=== PATIENT | female | born 1980 | race Caucasian/White ===

== ENCOUNTER → 2021-02-23 09:08 | Outpatient (CLI) | payer MEDICAID, SELFPAY ==
[2021-02-23 11:28] LABS: HCG,Quantitative 30002 mIU/ml (0-5.42)
== END ==
PROVIDERS: Visit Provider Obstetrics & Gynecology
DX: Z34.90 Encounter for supervision of normal pregnancy, unspecified, unspecified trimester (principal)
CPT/HCPCS: 36415; 84702